=== PATIENT | female | born 1955 | race African-American/Black ===

== ENCOUNTER → 2016-10-01 | Outpatient (CLI) | payer BC ==
[2016-10-01 11:26] LABS: CHOLESTEROL 144 mg/dL (0-200); HDL CHOLESTEROL 33 mg/dL (35-95); LDL CHOLESTEROL 83 mg/dL (-130); LDL/HDL RATIO 3 RATIO (0-4); TRIGLYCERIDES 139 mg/dL (10-160)
== END | disposition home or self-care (01) ==
LOC: CLAB 09:57
PROVIDERS: Internal Medicine Endocrinology, Diabetes & Metabolism
DX: E89.0 Postprocedural hypothyroidism (principal); R63.5 Abnormal weight gain
CPT/HCPCS: 36415; 80061; 84443